=== PATIENT | male | born 1945 | race Caucasian/White ===

== ENCOUNTER 2017-07-11 08:00 | Outpatient (RCR) | payer MEDICARE, OTHER ==
[~2017-07-11 08:00] MED LIST: ALLOPURINOL100 MG PO; ALLOPURINOL300 MG PO; ASPIR 8181 MG PO; ASPIRIN81 MG PO; BRILINTA90 MG PO; BUPROPION XL300 MG PO; CLONAZEPAM0.5 MG PO; DIOVAN PO; DIOVAN160 MG PO; FUROSEMIDE40 MG PO; ISOSORBIDE MONO30 MG PO; LAMOTRIGINE200 MG PO; LORTAB 10-5001 EACH PO; METOPROLOL SUCC50 MG PO; NAMENDA10 MG PO; NITROSTAT0.4 MG SL; OMEPRAZOLE20 M1 PO; PANTOPRAZOLE SO40 MG PO; PLAVIX75 MG PO; SERTRALINE HCL100 MG PO; SIMVASTATIN40 MG PO
== END 2017-07-13 ==
LOC: PT 08:00
PROVIDERS: ATTEND Neurological Surgery
DX: M51.16 Intervertebral disc disorders with radiculopathy, lumbar region (principal); M54.5 Low back pain; M62.81 Muscle weakness (generalized)
CPT/HCPCS: 97110 ×5; 97112; 97162; G8978; G8979

== ENCOUNTER 2017-07-24 08:00 | Outpatient (RCR) | payer MEDICARE, OTHER | END 2017-08-13 | LOC: PT 08:00 | PROVIDERS: ATTEND Neurological Surgery | DX: M51.16 Intervertebral disc disorders with radiculopathy, lumbar region (principal); M54.5 Low back pain; M62.81 Muscle weakness (generalized) | CPT/HCPCS: 97110 ×4; 97140; G8979; G8980 ==

== ENCOUNTER 2017-12-02 12:13 | Outpatient (RCR) | payer MEDICARE, OTHER | END 2017-12-11 | LOC: ST 12:13 | PROVIDERS: ATTEND Psychiatry & Neurology Clinical Neurophysiology | DX: G20 Parkinson's disease (principal); F02.80 Dementia in other diseases classified elsewhere, unspecified severity, without behavioral disturbance, psychotic disturbance, mood disturbance, and anxiety; R13.10 Dysphagia, unspecified | CPT/HCPCS: 92524; G9171; G9172 ==

== ENCOUNTER → 2018-01-19 | Outpatient (CLI) | payer MEDICARE, OTHER ==
--- NOTE | 2018-01-19 13:52 | Diagnostic Imaging Report ---
PROCEDURE:X-RAY MODIFIED BARIUM SWALLOW COMPARISON:None. INDICATIONS:DYSPHAGIA DISCUSSION:Fluoroscopic examination was performed in conjunction with speech pathology, during swallowing of a variety of thin and thick liquid consistencies. Fluoroscopy time: 1:09 sec Cumulative air kerma: 4.17 mGy CONCLUSION:Minimal flash penetration. No aspiration. Please see the report from speech pathology for complete details. Dictated by: Alvaro Mora M.D. on 01/19/2018 at 13:56 Electronically approved by: Alvaro Mora M.D. on 01/19/2018 at 13:56
== END ==
LOC: DX 09:06
PROVIDERS: ATTEND Psychiatry & Neurology Clinical Neurophysiology
DX: G31.83 Neurocognitive disorder with Lewy bodies (principal); G20 Parkinson's disease
CPT/HCPCS: 74230; 92611; G8996; G8997; G8998

== ENCOUNTER 2018-01-21 10:00 | Outpatient (RCR) | payer MEDICARE, OTHER ==
[2018-02-03] MEDS ORDERED: SINEMET 25-1001 EACH PO (16:58)
== END 2018-02-10 ==
LOC: ST 10:00
PROVIDERS: ATTEND Psychiatry & Neurology Clinical Neurophysiology
DX: G20 Parkinson's disease (principal); F02.80 Dementia in other diseases classified elsewhere, unspecified severity, without behavioral disturbance, psychotic disturbance, mood disturbance, and anxiety; R49.8 Other voice and resonance disorders
CPT/HCPCS: 92507 ×6; 92526; 97139; G9171 ×2; G9172 ×2; G9173

== ENCOUNTER 2018-02-03 16:06 | Observation (INO) | payer MEDICARE, OTHER ==
[~2018-02-03] VITALS: Ht 172.7 cm; Wt 92.5 kg
[2018-02-03 16:56] LABS: BASOPHILS % 0.4 % (0.0-1.0); EOSINOPHILS # (AUTO) 0.2 (0.0-0.4); EOSINOPHILS % 4.2 % (0.0-6.0); HEMATOCRIT 35.8 % (38.2-49.6); HEMOGLOBIN 12.5 g/dL (14.0-18.0); LYMPHOCYTES # (AUTO) 0.7 (1.0-3.2); LYMPHOCYTES % 14.8 % (18.0-39.1); MEAN CORPUSCULAR HGB CONC 34.9 g/dL (31-35); MEAN CORPUSCULAR VOLUME 94.5 fL (81-99); MONOCYTES # (AUTO) 0.4 (0.2-0.8); MONOCYTES % 9.1 % (4.4-11.3); NEUTROPHILS # (AUTO) 3.2 (2.1-6.9); NEUTROPHILS % 71.3 % (38.7-80.0); RED BLOOD COUNT 3.79 x10e6/uL (4.3-5.7); RED CELL DISTRIBUTION WIDTH 13.2 % (11.7-14.4)
[2018-02-03 16:58] LABS: PLATELET COUNT 84 x10e3/uL (140-360)
[2018-02-03] MEDS ORDERED: SINEMET 25-1001 EACH PO (16:58)
--- NOTE | 2018-02-03 17:04 | Diagnostic Imaging Report ---
PROCEDURE: A single AP view of the chest. COMPARISON: Patients [facility], , CHEST 2 VIEWS, 06/11/2017, 12:28. INDICATIONS: HYPOTENSION FINDINGS: Exam limited by patient rotation. Lines/tubes: None. Lungs: The lungs are well inflated and grossly clear. There is no evidence of pneumonia or pulmonary edema. Pleura: There is no pleural effusion or pneumothorax. Heart and mediastinum: The heart and the mediastinum are unremarkable. Bones: No acute bony abnormality. IMPRESSION: 1. exam limited by patient rotation. No acute cardiopulmonary abnormalities. Josh Linda M.D. Dictated by: Josh Linda M.D. on 02/03/2018 at 17:09 Electronically approved by: Josh iLnda M.D. on 02/03/2018 at 17:09
[2018-02-03 17:06] LABS: INR 1.17
[2018-02-03 17:07] LABS: BILIRUBIN,URINE NEGATIVE (NEGATIVE); CLARITY,URINE CLEAR (CLEAR); COLOR,URINE YELLOW (YELLOW); KETONES,URINE NEGATIVE (NEGATIVE); LEUKOCYTE ESTERASE ,URINE NEGATIVE (NEGATIVE); NITRITE,URINE NEGATIVE (NEGATIVE); PROTEIN,URINE DIPSTICK NEGATIVE (NEGATIVE); URINE UROBILINOGEN 0.2 mg/dL (0.2 - 1)
[2018-02-03 17:07] LABS: PARTIAL THROMBOPLASTIN TIME 25.8 seconds (23.8-35.5)
[2018-02-03 17:15] LABS: ALANINE AMINOTRANSFERASE 9 IU/L (0-55); ALBUMIN 3.9 g/dL (3.5-5.0); ALBUMIN/GLOBULIN RATIO 1.4 (0.8-2.0); ALKALINE PHOSPHATASE 63 IU/L (40-150); AMYLASE 66 U/L (25-125); ANION GAP 15.7 mmol/L (8-16); BLOOD UREA NITROGEN 43 mg/dL (7-26); BUN/CREATININE RATIO 19 (6-25); CALCIUM 8.7 mg/dL (8.4-10.2); CARBON DIOXIDE 25 mmol/L (22-29); CHLORIDE 105 mmol/L (98-107); CREATINE KINASE 52 IU/L (30-200); CREATININE, SERUM 2.31 mg/dL (0.72-1.25); EST GLOMERULAR FILTRATION RATE 28 ML/MIN (60-); GLUCOSE 86 mg/dL (74-118); LIPASE 50 U/L (8-78); MAGNESIUM 2.1 MG/DL (1.3-2.1); POTASSIUM 3.7 mmol/L (3.5-5.1); SODIUM 142 mmol/L (136-145)
[2018-02-03 17:23] LABS: EPITHELIAL CELLS,URINE RARE /LPF
[2018-02-03 20:46] VITALS: BP 151/78
[2018-02-03 20:58] VITALS: BP 151/78
[2018-02-03 21:10] VITALS: BP 151/78
[2018-02-04] VITALS (9 sets, daily range): BP systolic 111–167; BP diastolic 56–85
[2018-02-04 01:22] LABS: CREATINE KINASE 52 IU/L (30-200)
[2018-02-04 05:45] LABS: CHOL/HDL RATIO 3.4 (3.9-4.7)
[2018-02-04 08:11] LABS: CREATINE KINASE 52 IU/L (30-200)
[2018-02-04] MEDS ORDERED: SODIUM CHLORIDE 0.45% 1,000 ML IV ONE (08:45)
[2018-02-04] MEDS: ISOSORBIDE MONONITRATE 30 MG TAB CR PO SCH (09:20)
[2018-02-04] MEDS: MEMANTINE 10 MG TAB PO SCH ×2 (09:20→17:50)
[2018-02-04] MEDS: ASPIRIN 81 MG CHEW TAB PO SCH (09:20)
[2018-02-04] MEDS: CLOPIDOGREL BISULFATE 75 MG TAB PO SCH (09:20)
[2018-02-04] MEDS: SERTRALINE HCL 100 MG TAB PO SCH ×2 (09:21→17:50)
[2018-02-04] MEDS: ALLOPURINOL 300 MG TAB PO SCH (09:21)
[2018-02-04] MEDS: CARBIDOPA/LEVODOPA 25/100 TAB PO SCH ×2 (09:21→17:50)
[2018-02-04] MEDS: PANTOPRAZOLE SOD 40 MG TABEC PO SCH (09:39)
[2018-02-04] MEDS: SIMVASTATIN 40 MG TAB PO SCH (21:05)
[2018-02-04] MEDS: CLONAZEPAM 0.5 MG TAB PO SCH (21:05)
[2018-02-05] VITALS (7 sets, daily range): BP systolic 120–167; BP diastolic 75–82
[2018-02-05] MEDS: ASPIRIN 81 MG CHEW TAB PO SCH (08:10)
[2018-02-05] MEDS: PANTOPRAZOLE SOD 40 MG TABEC PO SCH (08:10)
[2018-02-05] MEDS: CARBIDOPA/LEVODOPA 25/100 TAB PO SCH ×2 (08:11→16:44)
[2018-02-05] MEDS: ISOSORBIDE MONONITRATE 30 MG TAB CR PO SCH (08:11)
[2018-02-05] MEDS: CLOPIDOGREL BISULFATE 75 MG TAB PO SCH (08:11)
[2018-02-05] MEDS: MEMANTINE 10 MG TAB PO SCH ×2 (08:11→16:44)
[2018-02-05] MEDS: ALLOPURINOL 300 MG TAB PO SCH (08:11)
[2018-02-05] MEDS: SERTRALINE HCL 100 MG TAB PO SCH ×2 (08:11→16:44)
[2018-02-05] MEDS ORDERED: SODIUM CHLORIDE 0.9% 1000ML 1,000 ML IV SCH (11:15)
[2018-02-05 11:23] LABS: BASOPHILS % 0.7 % (0.0-1.0); EOSINOPHILS # (AUTO) 0.2 (0.0-0.4); EOSINOPHILS % 4.6 % (0.0-6.0); HEMOGLOBIN 12.8 g/dL (14.0-18.0); LYMPHOCYTES # (AUTO) 0.7 (1.0-3.2); LYMPHOCYTES % 15.1 % (18.0-39.1); MEAN CORPUSCULAR HEMOGLOBIN 32.3 pg (28-32); MEAN CORPUSCULAR HGB CONC 34.6 g/dL (31-35); MEAN CORPUSCULAR VOLUME 93.4 fL (81-99); MONOCYTES # (AUTO) 0.3 (0.2-0.8); MONOCYTES % 7.7 % (4.4-11.3); NEUTROPHILS # (AUTO) 3.1 (2.1-6.9); NEUTROPHILS % 71.7 % (38.7-80.0); PLATELET COUNT 75 x10e3/uL (140-360); RED BLOOD COUNT 3.96 x10e6/uL (4.3-5.7)
[2018-02-05 11:37] LABS: ANION GAP 12.6 mmol/L (8-16); CALCIUM 9.8 mg/dL (8.4-10.2); CREATININE, SERUM 1.27 mg/dL (0.72-1.25); POTASSIUM 4.6 mmol/L (3.5-5.1)
[2018-02-05] MEDS: CLONAZEPAM 0.5 MG TAB PO SCH (21:35)
[2018-02-05] MEDS: SIMVASTATIN 40 MG TAB PO SCH (21:35)
[2018-02-06 01:20] VITALS: BP 139/80
[2018-02-06 05:30] VITALS: BP 145/82
[2018-02-06 05:48] LABS: BASOPHILS % 0.6 % (0.0-1.0); EOSINOPHILS # (AUTO) 0.3 (0.0-0.4); EOSINOPHILS % 5.1 % (0.0-6.0); HEMATOCRIT 37.7 % (38.2-49.6); HEMOGLOBIN 13.2 g/dL (14.0-18.0); LYMPHOCYTES # (AUTO) 0.8 (1.0-3.2); LYMPHOCYTES % 16.4 % (18.0-39.1); MEAN CORPUSCULAR HEMOGLOBIN 32.7 pg (28-32); MEAN CORPUSCULAR VOLUME 93.3 fL (81-99); MONOCYTES # (AUTO) 0.5 (0.2-0.8); MONOCYTES % 9.9 % (4.4-11.3); NEUTROPHILS # (AUTO) 3.4 (2.1-6.9); NEUTROPHILS % 67.8 % (38.7-80.0); PLATELET COUNT 80 x10e3/uL (140-360); RED BLOOD COUNT 4.04 x10e6/uL (4.3-5.7); RED CELL DISTRIBUTION WIDTH 13.2 % (11.7-14.4)
[2018-02-06 06:33] LABS: ANION GAP 13.2 mmol/L (8-16); CALCIUM 8.8 mg/dL (8.4-10.2); CREATININE, SERUM 1.28 mg/dL (0.72-1.25); POTASSIUM 4.2 mmol/L (3.5-5.1)
[2018-02-06 08:19] VITALS: BP 174/84
[2018-02-06] MEDS: ASPIRIN 81 MG CHEW TAB PO SCH (08:51)
[2018-02-06] MEDS: PANTOPRAZOLE SOD 40 MG TABEC PO SCH (08:51)
[2018-02-06] MEDS: SERTRALINE HCL 100 MG TAB PO SCH (08:52)
[2018-02-06] MEDS: CARBIDOPA/LEVODOPA 25/100 TAB PO SCH (08:52)
[2018-02-06] MEDS: CLOPIDOGREL BISULFATE 75 MG TAB PO SCH (08:52)
[2018-02-06] MEDS: ISOSORBIDE MONONITRATE 30 MG TAB CR PO SCH (08:52)
[2018-02-06] MEDS: ALLOPURINOL 300 MG TAB PO SCH (08:52)
[2018-02-06] MEDS: MEMANTINE 10 MG TAB PO SCH (08:52)
--- NOTE | 2018-02-06 08:54 | Progress Note ---
DATE: February 05, 2018 TIME: 7:15 a.m. OVERNIGHT: No events. REVIEW OF SYSTEMS: Denies any dizziness. PHYSICAL EXAMINATION VITAL SIGNS: Reviewed. GENERAL: A tired-appearing man resting in bed. HEENT: Anicteric. CARDIOVASCULAR: Normal S1 and S2. LUNGS: Moderate breath sounds. ABDOMEN: Soft and nontender. EXTREMITIES: No edema. SKIN: Dry. PSYCHIATRIC: Normal affect. LABS: Reviewed. MEDICATIONS: Reviewed. ASSESSMENT AND PLAN: A 72-year-old man with: 1. Hypotension. 2. Presyncope. 3. Obesity. 4. Pancytopenia. 5. Acute kidney injury. 6. Parkinson disease. 7. Dementia. 8. Gastroesophageal reflux disease. 9. Hyperlipidemia. 10. Coronary artery disease. PLAN 1. Follow up echocardiogram report. 2. Follow up ultrasound of the carotids. 3. Continue physical therapy. 4. Orthostatics are negative. 5. Discharge planning. Job#: [id number] [place]
--- NOTE | 2018-02-06 09:05 | Discharge Summary ---
PRINCIPAL DIAGNOSES 1. Presyncope. 2. Hypotension likely secondary to Lasix use. 3. Obesity. 4. Pancytopenia. 5. Acute kidney injury. 6. Parkinson disease. 7. Dementia. 8. Gastroesophageal reflux disease. 9. Hyperlipidemia. 10. Coronary artery disease. SECONDARY DIAGNOSIS: Coronary artery disease. CHIEF COMPLAINT: Near passing out. HISTORY OF PRESENT ILLNESS: This is a 72-year-old man who almost passed out. Please refer to the H and P for further details. HOSPITAL COURSE: The patient almost passed out. Had low blood pressure likely secondary to Lasix use. Echocardiogram and ultrasound of the carotids were negative per report. The patient had physical therapy. Orthostatic vitals were negative. He is doing better and currently appropriate for discharge and followup. DISCHARGE MEDICATIONS: Per electronic medical record. FOLLOWUP: Primary care doctor in 1 week. CONDITION ON DISCHARGE: Stable and improved. DISCHARGE LOCATION: Home with physical therapy. The patient will also need to follow his renal function. His acute kidney injury did improve, but needs have renal function monitored. He likely has chronic kidney disease, stage 3. Will need continued monitoring outpatient by his primary care doctor. KARRIE WALKER MD Job#: [id number] [place]
== END 2018-02-06 09:52 | disposition home or self-care (01) ==
LOC: ER 16:06 → ERHOLD 19:23 → IMCU 20:24
PROVIDERS: ADMIT Internal Medicine; ATTEND Internal Medicine
DX: R55 Syncope and collapse (principal); E66.9 Obesity, unspecified; D61.818 Other pancytopenia; N17.9 Acute kidney failure, unspecified; G20 Parkinson's disease; F02.80 Dementia in other diseases classified elsewhere, unspecified severity, without behavioral disturbance, psychotic disturbance, mood disturbance, and anxiety; K21.9 Gastro-esophageal reflux disease without esophagitis; E78.5 Hyperlipidemia, unspecified; I25.10 Atherosclerotic heart disease of native coronary artery without angina pectoris; I95.2 Hypotension due to drugs; T50.1X5A Adverse effect of loop [high-ceiling] diuretics, initial encounter; Z68.31 Body mass index [BMI] 31.0-31.9, adult
CPT/HCPCS: 36415 ×4; 71045; 80048 ×2; 80053; 80061; 81001; 82150; 82550 ×2; 82553 ×2; 83036; 83690; 83735; 83880; 84484 ×2; 85025 ×3; 85610; 85730; 93005; 93306; 93880; 97116; 97139; 97161; 99284; G0378 ×4; G8978; G8979; G8980; J7030; S0164 ×3

== ENCOUNTER 2018-02-09 10:00 | Outpatient (RCR) | payer MEDICARE, OTHER ==
--- NOTE | 2018-02-04 14:07 | History and Physical ---
PRIMARY CARE PHYSICIAN: Dr. Hussein CHIEF COMPLAINT: Dizziness and fall. HISTORY OF PRESENT ILLNESS: This is a 72-year-old man with a history of coronary artery disease, who had 2 stents in the past more than 2 years ago. Apparently, while getting out of his car he felt dizzy, saw a white light with purple streaks. The patient fell the ground, but did not pass out. Quickly came around. He has been on Lasix. He does have some renal dysfunction. Last creatinine was 1.4. The patient was brought to the hospital. Creatinine is found to be worse, now at 2.31. The patient does have CHF for which he takes Lasix. Denies any chest pain or shortness of breath. Denies any diarrhea. Denies any other symptoms. His last echocardiogram more than 6 months ago. Last stress test probably last year per the patient's . The patient's blood pressure was found to be as low as 69/41 and improved to 101/64 with D50 bolus. PAST MEDICAL HISTORY: Coronary artery disease, status post 2 stents more than 2 years ago, Parkinson disease, chronic kidney disease, stage unknown, possibly stage 3, dementia, GERD, hyperlipidemia, hypertension, congestive heart failure, type unknown. PAST SURGICAL HISTORY: Coronary stent times 2, cholecystectomy, knee replacement, cervical fusion by Dr. Moe, back surgery. ALLERGIES: PER ELECTRONIC MEDICAL RECORD. FAMILY HISTORY/SOCIAL HISTORY: Patient is . He has 3 children. Occasional alcohol. No cigarettes or illicits. MEDICATIONS: Per electronic medical record. REVIEW OF SYSTEMS: Denies any chest pain, shortness of breath, fever, chills, sweats, nausea, vomiting, diarrhea, leg pain, back pain, or headache. PHYSICAL EXAMINATION VITAL SIGNS: Have been reviewed. GENERAL: A tired-appearing man resting in bed. HEENT: Anicteric. Pupils respond to light. No oral lesions. CARDIOVASCULAR: Normal S1 and S2. LUNGS: Moderate breath sounds. ABDOMEN: Soft, nontender and nondistended. EXTREMITIES: No edema or calf tenderness. NEUROLOGICAL: Alert and oriented times 3. Moving all extremities. SKIN: Dry. PSYCHIATRIC: Normal affect. LABS: Reviewed. MEDICATIONS: Reviewed. ASSESSMENT AND PLAN: A 72-year-old man with: 1. Hypotension. 2. Fall. 3. Obesity. 4. Pancytopenia. 5. Acute kidney injury. 6. Parkinson disease. 7. Dementia. 8. Gastroesophageal reflux disease. 9. Hyperlipidemia. 10. Coronary artery disease. PLAN 1. Rehydrate the patient with half normal saline. 2. Hold Lasix and valsartan. 3. Obtain orthostatic vital signs. 4. Physical therapy consultation. 5. Obtain 2-D echocardiogram and ultrasound of the carotids. 6. Restart other medication regimen. 7. Will need to follow up renal function. 8. Follow up orthostatic vital signs. 9. Patient has CHF. Will hold Lasix at this time. Follow up echocardiogram. 10. Will use SCD for DVT prophylaxis and PPI. Job#: [id number] [place]OXAN[place]
[~2018-02-09 10:00] MED LIST changes: +SINEMET 25-1001 EACH PO
== END 2018-02-10 ==
LOC: ST 10:00
PROVIDERS: ATTEND Psychiatry & Neurology Clinical Neurophysiology
DX: G20 Parkinson's disease (principal); F02.80 Dementia in other diseases classified elsewhere, unspecified severity, without behavioral disturbance, psychotic disturbance, mood disturbance, and anxiety; R49.8 Other voice and resonance disorders
CPT/HCPCS: 92507 ×5; G9171; G9172

== ENCOUNTER → 2018-02-13 | Outpatient (CLI) | payer MEDICARE, OTHER ==
[~2018-02-13] MED LIST changes: +DIATRIZOATE MEGL/DIATRIZOA SOD 30 ML BTL PO ONE
--- NOTE | 2018-02-13 13:12 | Diagnostic Imaging Report ---
PROCEDURE: CT ABDOMEN AND PELVIS WITHOUT CONTRAST TECHNIQUE: The abdomen and pelvis were scanned utilizing a multidetector helical scanner from the diaphragm to the lesser trochanter after the oral administration of Gastroview. No IV contrast was administered. Coronal and sagittal multiplanar reformations were obtained. DLP: 662.3 mGy-cm COMPARISON: None. INDICATIONS: RIGHT SIDE ABDOMINAL PAIN FINDINGS: ABSENCE OF INTRAVENOUS CONTRAST DECREASES SENSITIVITY FOR DETECTION OF FOCAL LESIONS AND VASCULAR PATHOLOGY. LOWER THORAX: Coronary artery calcifications. HEPATOBILIARY: No focal hepatic lesions. No biliary ductal dilatation. Cholecystectomy. SPLEEN: No splenomegaly. PANCREAS: No focal masses or ductal dilatation. ADRENALS: No adrenal nodules. KIDNEYS/URETERS: No hydronephrosis or solid mass lesions. Nonobstructing 0.3 cm calculus in the superior right renal pole. A 0.6 cm parapelvic lesion in the interpolar region of the left kidney (coronal image 71, sagittal image 107) measures 84 HU on non-contrast CT suggesting a hyperdense cyst. PELVIC ORGANS/BLADDER: Unremarkable. PERITONEUM / RETROPERITONEUM: No free air or fluid. LYMPH NODES: No lymphadenopathy. VESSELS: Mild scattered atherosclerotic calcifications. No abdominal aortic aneurysm. GI TRACT: No distention or wall thickening. Sigmoid and descending colonic diverticula without evidence of diverticulitis. Appendix is normal. BONES AND SOFT TISSUES: Small fat-containing direct right inguinal hernia. Mild degenerative changes of the spine. IMPRESSION: 1. No acute abnormalities in the abdomen and pelvis. 2. Nonobstructing stone in the right kidney. 3. Small lesion in the left kidney with density suggestive of a hyperdense cyst. 4. Colonic diverticulosis without evidence of diverticulitis. 5. Small fat-containing direct right inguinal hernia. Dictated by: Reji Valenzuela M.D. on 02/13/2018 at 13:17 Electronically approved by: Reji Valenzuela M.D. on 02/13/2018 at 13:17
== END ==
LOC: CT 11:07
PROVIDERS: ATTEND Internal Medicine
DX: R10.9 Unspecified abdominal pain (principal); N20.0 Calculus of kidney; K57.90 Diverticulosis of intestine, part unspecified, without perforation or abscess without bleeding; K40.90 Unilateral inguinal hernia, without obstruction or gangrene, not specified as recurrent
CPT/HCPCS: 74176

== ENCOUNTER → 2018-04-29 | Day surgery (SDC) | payer MEDICARE, OTHER ==
[2018-04-27 15:03] LABS: BASOPHILS % 0.8 % (0.0-1.0); EOSINOPHILS # (AUTO) 0.2 (0.0-0.4); EOSINOPHILS % 4.2 % (0.0-6.0); HEMATOCRIT 40.9 % (38.2-49.6); HEMOGLOBIN 13.9 g/dL (14.0-18.0); LYMPHOCYTES # (AUTO) 0.8 (1.0-3.2); MEAN CORPUSCULAR HEMOGLOBIN 32.9 pg (28-32); MEAN CORPUSCULAR VOLUME 96.7 fL (81-99); MONOCYTES # (AUTO) 0.4 (0.2-0.8); MONOCYTES % 7.5 % (4.4-11.3); NEUTROPHILS # (AUTO) 3.4 (2.1-6.9); NEUTROPHILS % 71.1 % (38.7-80.0); RED BLOOD COUNT 4.23 x10e6/uL (4.3-5.7); RED CELL DISTRIBUTION WIDTH 13.9 % (11.7-14.4)
[2018-04-27 15:06] LABS: PLATELET COUNT 86 x10e3/uL (140-360)
[~2018-04-29] MED LIST changes: +DEXILANT60 MG PO; -DIATRIZOATE MEGL/DIATRIZOA SOD 30 ML BTL PO ONE; +FENTANYL CITRATE/PF 100MCG/2 ML INJ ONE; +MIDAZOLAM HCL 2 MG/2 ML VIAL ONE; +PROPOFOL IV EMULSION 10 MG/ML 20 ML VIAL ONE
--- OUTSIDE RECORDS SUMMARY | 2018-04-29 09:05 | XMS REPORT | Summary of Care ---
Author Author MATTHEW King, RAGHU Daniels Unknown Address Unknown Phone Unavailable Care Team Providers Care Postdoctoral Scholar Name Role Phone MATTHEW King, RAGHU Unavailable Unavailable JL MELENDEZ M.D., AB Unavailable Unavailable Freddy Rice, Ale Unavailable Unavailable PANCHITO King, RUBEN Unavailable Unavailable ARI BILLY, DON RAY Unavailable Unavailable Unavailable Unavailable Functional Status Name Dates Details Functional status health issues are not documented Status: Name Dates Details Cognitive status health issues are not documented Status: Problems Name Dates Details Coronary artery disease (414.00, I25.10) Status: Active Essential (primary) hypertension (401.9, I10) Status: Active Hyperlipidemia (272.4, E78.5) Status: Active Ischemic cardiomyopathy (414.8, I25.5) Status: Active Parkinson's disease, Lewy body (332.0, G31.83) Status: Active Medications Name Dates Details Aspirin 81 MG TABS TAKE 1 TABLET DAILY PANCHITO Singleton.Reba, RUBEN * Start : 12-Sep-2011 Active LamoTRIgine 200 MG Oral Tablet TAKE 1/2 TABLET DAILY. * Quantity: 30 Refills: 0 * Start : 12-Sep-2011 Active Pantoprazole Sodium 40 MG Oral Tablet Delayed Release TAKE 1 TABLET DAILY * Refills: 0 PANCHITO Singleton.Laurel., RUBEN * Start : 12-Sep-2011 Active Allopurinol 100 MG Oral Tablet TAKE 2 TABLETS DAILY. * Refills: 0 BAPAT M.Laurel., RUBEN * Start : 12-Sep-2011 Active Simvastatin 40 MG Oral Tablet TAKE ONE TABLET BY MOUTH DAILY * Quantity: 90 Refills: 1 RAGHU CASTRO M.D. * Start : 12-Sep-2011 Active Nitroglycerin 0.4 MG Sublingual Tablet Sublingual DISSOLVE 1 TABLET UNDER THE TONGUE NEEDED FOR CHEST PAIN. * Quantity: 25 Refills: 1 RAGHU CASTRO M.D. * Start : 12-Sep-2011 Active Valsartan 160 MG Oral Tablet TAKE ONE TABLET BY MOUTH DAILY * Quantity: 90 Refills: 1 ANGELA CASTRO M.D.O * Start : 12-Nov-2017 Active Metoprolol Succinate ER 50 MG Oral Tablet Extended Release 24 Hour TAKE 1 TABLET DAILY. * Quantity: 90 Refills: 0 MATTHEW King, RAGHU * Start : 13-Sep-2011 Active Isosorbide Mononitrate ER 30 MG Oral Tablet Extended Release 24 Hour TAKE ONE TABLET BY MOUTH DAILY * Quantity: 90 Refills: 1 MATTHEW King, RAGHU * Start : 12-Jan-2018 Active Furosemide 40 MG Oral Tablet TAKE 1 TABLET BY MOUTH EVERY DAY * Quantity: 90 Refills: 0 MATTHEW King, RAGHU * Start : 05-Feb-2016 Active Clopidogrel Bisulfate 75 MG Oral Tablet TAKE ONE TABLET BY MOUTH DAILY * Quantity: 90 Refills: 1 MATTHEW King, RAGHU * Start : 12-Jan-2018 Active Namenda 10 MG Oral Tablet qd * Refills: 0 * Start : 07-May-2017 Active Sertraline HCl - 100 MG Oral Tablet TAKE 1 TABLET DAILY DIRECTED. * Refills: 0 AB GANT M.D. * Start : 06-Nov-2017 Active 30 Tablet Bottle Wellbutrin XL 300 MG Oral Tablet Extended Release 24 Hour TAKE 1 TABLET DAILY. * Refills: 0 AB GANT M.D. * Start : 06-Nov-2017 Active Allergies and Adverse Reactions Name Dates Details Keflex TABS (Allergy) Reaction: Angioedema Status: Active Past Medical History Name Dates Details History of angina pectoris (V12.59, Z86.79) Status: Resolved History of Coronary Artery Disease (V12.59) Status: Resolved History of Diverticulosis (562.10, K57.90) Status: Resolved History of hyperlipidemia (V12.29, Z86.39) Status: Resolved History of Hypertensive heart disease (402.90, I11.9) Status: Resolved History of Ischemic cardiomyopathy (414.8, I25.5) Status: Resolved Procedures Procedure Dates Details History of Cholecystectomy Completed History of Knee Replacement Completed History of Laminectomy Lumbar Completed History of Cath Stent Placement Completed History of Cervical Vertebral Fusion Completed Immunization Name Dates Details Immunizations not documented Family History Name Dates Details Family history of Heart Disease (V17.49) Status: Active Family history of Cardiomyopathy Status: Active Name Dates Details Family history of Breast Cancer (V16.3) Status: Active Social History Name Dates Details - Status: Name Dates Details Former smoker Vital Signs Date Test Result Details No Known Vitals to report Results Date Description Value Details Results not documented Plan of Care Name Dates Details Planned Observations Planned Goals not documented Planned Encounters Appointment; RAGHU CSATRO M.D. On: 20-May-2018 15:00 Interventions Provided Medication Changes* Simvastatin 40 MG Oral Tablet - Renew Instructions Name Dates Details Instructions not documented Encounters Appointment; RAGHU CASTRO M.D. Encounter Diagnosis: Problem not documented On: 28-Jun-2016 11:00 Appointment; RAGHU CASTRO M.D. Encounter Diagnosis: Problem not documented On: 05-Nov-2016 10:20 Appointment; RAGHU CASTRO M.D. Encounter Diagnosis: Problem not documented On: 05-Nov-2016 10:45 Appointment; RAGHU CASTRO M.D. Encounter Diagnosis: Problem not documented On: 07-May-2017 14:50 Appointment; PEDRO ANGUIANO Encounter Diagnosis: Problem not documented On: 07-May-2017 16:00 Appointment; RAGHU CASTRO M.D. Encounter Diagnosis: Problem not documented On: 09-May-2017 15:15 Appointment; RAGHU CASTRO M.D. Encounter Diagnosis: Problem not documented On: 06-Nov-2017 14:15 Appointment; RAGHU CASTRO M.D. Encounter Diagnosis: Problem not documented On: 06-Nov-2017 14:20 Appointment; RAGHU CASTRO M.D. Encounter Diagnosis: Problem not documented On: 03-Mar-2018 8:30
--- OUTSIDE RECORDS SUMMARY | 2018-04-29 09:05 | XMS REPORT | Clinical Summary ---
Author Author [facility] Address Unknown Phone Unavailable Care Team Providers Care Torch Solderer Name Role Phone Esperanza Hussein MD PCP Allergies Not on File Current Medications Not on file Active Problems Not on file Encounters Date Type Specialty Care Team Description 11/21/2017 Transcribe Physical Therapy Kary Bedoya MD Parkinsons (Primary Dx) Orders after 04/28/2017 Social History Tobacco Use Types Packs/Day Years Used Date Never Assessed Sex Assigned at Date Recorded Not on file Last Filed Vital Signs Not on file Plan of Treatment Health Maintenance Due Date Last Done Comments COLON CANCER SCREENING 1994 SHINGRIX VACCINE (#1) 1994 ZOSTER VACCINE 2004 PNEUMOCOCCAL 2009 POLYSACCHARIDE VACCINE AGE 65 AND OVER PNEUMOCOCCAL-13 2009 INFLUENZA VACCINE 02/11/2018 Results Not on fileafter 04/28/2017 Insurance Payer Benefit Subscriber ID Type Phone Address Plan / Group MEDICARE MEDICARE xxxxxxxxxx Medicare [place], [place] PART A AND B COMMERCIAL MISC MISC xxxxxxxxxx Commercial COMMERCIAL
[2018-04-29 11:50] VITALS: BP 114/68
== END | disposition home or self-care (01) ==
LOC: OR 09:00
PROVIDERS: ATTEND Internal Medicine Gastroenterology
DX: K29.70 Gastritis, unspecified, without bleeding (principal); D12.2 Benign neoplasm of ascending colon; D12.3 Benign neoplasm of transverse colon; K22.2 Esophageal obstruction; K44.9 Diaphragmatic hernia without obstruction or gangrene; K21.9 Gastro-esophageal reflux disease without esophagitis; K59.00 Constipation, unspecified; K57.30 Diverticulosis of large intestine without perforation or abscess without bleeding; K64.8 Other hemorrhoids; Z71.3 Dietary counseling and surveillance; E66.9 Obesity, unspecified; E78.00 Pure hypercholesterolemia, unspecified; M10.9 Gout, unspecified; I10 Essential (primary) hypertension; I25.10 Atherosclerotic heart disease of native coronary artery without angina pectoris; Z98.61 Coronary angioplasty status; G20 Parkinson's disease; F03.90 Unspecified dementia, unspecified severity, without behavioral disturbance, psychotic disturbance, mood disturbance, and anxiety; Z88.1 Allergy status to other antibiotic agents; Z91.048 Other nonmedicinal substance allergy status; Z01.810 Encounter for preprocedural cardiovascular examination; Z01.812 Encounter for preprocedural laboratory examination; Z79.02 Long term (current) use of antithrombotics/antiplatelets; Z79.82 Long term (current) use of aspirin; Z68.31 Body mass index [BMI] 31.0-31.9, adult; Z85.828 Personal history of other malignant neoplasm of skin; Z87.891 Personal history of nicotine dependence
CPT/HCPCS: 36415; 43239; 43450; 45380; 45385; 85025; 88305; 88312; 93005; J2250; 43235; 45378

== ENCOUNTER 2022-08-27 15:36 | Emergency (ER) | payer MEDICARE, OTHER ==
[~2022-08-27] VITALS: Ht 172.7 cm; Wt 92.5 kg
[~2022-08-27 15:36] MED LIST changes: -FENTANYL CITRATE/PF 100MCG/2 ML INJ ONE; -MIDAZOLAM HCL 2 MG/2 ML VIAL ONE; -PROPOFOL IV EMULSION 10 MG/ML 20 ML VIAL ONE
== END 2022-08-27 19:36 | disposition home or self-care (01) ==
LOC: ER 15:45
DX: R50.9 Fever, unspecified (principal); U07.1 COVID-19; R53.1 Weakness; G20 Parkinson's disease; F02.80 Dementia in other diseases classified elsewhere, unspecified severity, without behavioral disturbance, psychotic disturbance, mood disturbance, and anxiety; I10 Essential (primary) hypertension; E78.5 Hyperlipidemia, unspecified; I25.10 Atherosclerotic heart disease of native coronary artery without angina pectoris
CPT/HCPCS: 99282; U0002

== ENCOUNTER 2022-11-16 17:06 | Emergency (ER) | payer MEDICARE, OTHER ==
[~2022-11-16] VITALS: Ht 172.7 cm; Wt 81.6 kg
[2022-11-19] MEDS ORDERED: ATORVASTATIN CA20 MG PO (09:10)
[2022-11-19] MEDS ORDERED: ERGOCALCIFEROL1 GM PO (09:10)
[2022-11-19] MEDS ORDERED: NITROGLYCERIN0.4 MG SL (09:12)
[2022-11-19] MEDS ORDERED: NUPLAZID10 MG (09:12)
[2022-11-19] MEDS ORDERED: FEROSUL325 MG PO (09:12)
[2022-11-19] MEDS ORDERED: PROTONIX20 MG PO (09:12)
[2022-11-19] MEDS ORDERED: POTASSIUM CHLO20 MEQ PO (09:16)
[2022-11-19] MEDS ORDERED: SIMBRINZA 1%-0.28 M1 (09:16)
[2022-11-19] MEDS ORDERED: ROCKLATAN 0.022.5 ML (09:16)
== END 2022-11-16 20:40 | disposition home or self-care (01) ==
LOC: ER 17:58
DX: S00.83XA Contusion of other part of head, initial encounter (principal); M54.2 Cervicalgia; M25.551 Pain in right hip; W06.XXXA Fall from bed, initial encounter; Y92.89 Other specified places as the place of occurrence of the external cause; I10 Essential (primary) hypertension; E78.5 Hyperlipidemia, unspecified; I25.10 Atherosclerotic heart disease of native coronary artery without angina pectoris; G20 Parkinson's disease; F02.80 Dementia in other diseases classified elsewhere, unspecified severity, without behavioral disturbance, psychotic disturbance, mood disturbance, and anxiety; M10.9 Gout, unspecified
CPT/HCPCS: 70450; 72125; 93005; 99284

== ENCOUNTER → 2022-11-20 | Day surgery (SDC) | payer MEDICARE, OTHER ==
[~2022-11-20] MED LIST changes: +ATORVASTATIN CA20 MG PO; +ERGOCALCIFEROL1 GM PO; +FEROSUL325 MG PO; +LACTATED RINGER'S 1,000 ML ONE; +LIDOCAINE HCL 2% LOCAL INJ 5 ML SDV VIAL INJ ONE; +NITROGLYCERIN0.4 MG SL; +NUPLAZID10 MG; +POTASSIUM CHLO20 MEQ PO; +POVIDONE IODINE 0.05% 0.05 % ML PO ONE; +PROPOFOL IV EMULSION 10 MG/ML 20 ML VIAL ONE; +PROTONIX20 MG PO; +ROCKLATAN 0.022.5 ML; +SIMBRINZA 1%-0.28 M1; +SIMETHICONE 40 MG/0.6 ML BTL ONE
[2022-11-20 11:14] VITALS: TEMP 97.3
[2022-11-20 12:45] VITALS: BP 117/75; PULSE 78; RESP 17; O2SAT 97
== END | disposition home or self-care (01) ==
LOC: OR 09:35
PROVIDERS: ATTEND Internal Medicine Gastroenterology
DX: K22.2 Esophageal obstruction (principal); K44.9 Diaphragmatic hernia without obstruction or gangrene; K29.50 Unspecified chronic gastritis without bleeding; K21.9 Gastro-esophageal reflux disease without esophagitis; K57.30 Diverticulosis of large intestine without perforation or abscess without bleeding; Z86.010 Personal history of colon polyps; K58.9 Irritable bowel syndrome, unspecified; I25.10 Atherosclerotic heart disease of native coronary artery without angina pectoris; I11.0 Hypertensive heart disease with heart failure; I50.9 Heart failure, unspecified; G20 Parkinson's disease; F02.80 Dementia in other diseases classified elsewhere, unspecified severity, without behavioral disturbance, psychotic disturbance, mood disturbance, and anxiety; E78.5 Hyperlipidemia, unspecified; Z88.1 Allergy status to other antibiotic agents; Z91.048 Other nonmedicinal substance allergy status; Z79.82 Long term (current) use of aspirin; Z79.899 Other long term (current) drug therapy; Z95.5 Presence of coronary angioplasty implant and graft
CPT/HCPCS: 43239; 43450; 88305; 88342; 93005; J2001; J2704; J7121; 88312

== ENCOUNTER 2022-12-28 08:52 | Emergency (ER) | payer MEDICARE, OTHER ==
[~2022-12-28] VITALS: Ht 172.7 cm; Wt 81.6 kg
[~2022-12-28 08:52] MED LIST changes: -LACTATED RINGER'S 1,000 ML ONE; -LIDOCAINE HCL 2% LOCAL INJ 5 ML SDV VIAL INJ ONE; -POVIDONE IODINE 0.05% 0.05 % ML PO ONE; -PROPOFOL IV EMULSION 10 MG/ML 20 ML VIAL ONE; -SIMETHICONE 40 MG/0.6 ML BTL ONE
[2022-12-28 09:03] VITALS: O2SAT 98
== END 2022-12-28 11:52 | disposition home or self-care (01) ==
LOC: ER 08:57
DX: S00.83XA Contusion of other part of head, initial encounter (principal); W01.0XXA Fall on same level from slipping, tripping and stumbling without subsequent striking against object, initial encounter; Y93.01 Activity, walking, marching and hiking; Y92.89 Other specified places as the place of occurrence of the external cause; J30.9 Allergic rhinitis, unspecified; G20 Parkinson's disease; F02.80 Dementia in other diseases classified elsewhere, unspecified severity, without behavioral disturbance, psychotic disturbance, mood disturbance, and anxiety; I10 Essential (primary) hypertension; E78.5 Hyperlipidemia, unspecified; I25.10 Atherosclerotic heart disease of native coronary artery without angina pectoris; G40.909 Epilepsy, unspecified, not intractable, without status epilepticus; M10.9 Gout, unspecified
CPT/HCPCS: 70450; 72125; 99284